=== PATIENT | female | born 1945 | race Caucasian/White ===

== ENCOUNTER → 2018-10-06 | Outpatient (CLI) | payer OTHER | LOC: CIMAGING 17:36 | PROVIDERS: ATTEND Family Medicine | DX: E11.621 Type 2 diabetes mellitus with foot ulcer (principal); Z79.4 Long term (current) use of insulin | CPT/HCPCS: 73620-PO ==

== ENCOUNTER 2018-12-29 05:49 | Inpatient (IN) | payer OTHER ==
[2018-12-29] MEDS ORDERED: ceFAZolin 2 GM/DEXTROSE 100 ML IV ONE (06:07)
[2018-12-29] MEDS ORDERED: LR 1,000 ML IV ONE (06:07)
--- NOTE | 2018-12-29 06:35 | PDHPUP ---
History & Physical Update H&P update statement: This history and physical update is based on an assessment of the patient which was completed after admission or registration (within 24 hours), but prior to the surgery/procedure. H&P update: H&P reviewed & patient examined, no change in patient's condition since H&P completed
[2018-12-29 06:45] LABS: PLATELET COUNT 229 10^3/uL (150-400)
--- NOTE | 2018-12-29 06:56 | PDANEPAE ---
ANE Past Medical History - Cardiovascular History Hx Hypertension: No Hx Arrhythmias: No Hx Chest Pain: No Hx Coronary Artery / Peripheral Vascular Disease: No Hx CHF / Valvular Disease: No Hx Palpitations: No Cardiovascular History Comment: peripheral neuropathy - Pulmonary History Hx COPD: Yes Hx Asthma/Reactive Airway Disease: No Hx Recent Upper Respiratory Infection: No Hx Oxygen in Use at Home: Yes O2 in Use at Home (L/minute): 2.L 24/7 Hx Sleep Apnea: No Sleep Apnea Screening Result - Last Documented: Positive - Neurologic History Hx Cerebrovascular Accident: No Hx Seizures: No Hx Dementia: No - Endocrine History Hx Diabetes: Yes Endocrine History Comment: type 2 - Renal History Hx Renal Disorders: No - Liver History Hx Hepatic Disorders: No - Neurological & Psychiatric Hx Hx Neurological and Psychiatric Disorders: Yes Neurological / Psychiatric History Comment: peripheral neuropathy. anxiety, depression - Cancer History Hx Cancer: No - Congenital Disorder History Hx Congenital Disorders: No - GI History Hx Gastrointestinal Disorders: Yes Gastrointestinal History Comment: COLITIS - Other Health History Other Health History: BILAT CATARACT SX. 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 UPPER AND LOWER DENTURE. ANEMIA - Chronic Pain History Chronic Pain: Yes (LEFT SHOULDER AND ARM) - Surgical History Prior Surgeries: none in last 5 years. colonoscopy 2009. back,surgery. choleycystectomy 1982 ANE Review of Systems Review of Systems: - Exercise capacity METS (RN): 3 METS ANE Patient History - Allergies Allergies/Adverse Reactions: Penicillins Allergy (Mild, Verified 12/26/18 14:13) Other-Enter Comments - Home Medications Home Medications: DULoxetine [Cymbalta 60 MG (*)] 60 mg PO BID 07/29/09 [Last Taken 12/28/18] Imipramine HCl [Imipramine HCl 25 mg (*)] 125 mg PO HS 07/29/09 [Last Taken ] Lisinopril [Zestril 5 mg (*)] 5 mg PO DAILY PRN 07/29/09 [Last Taken 12/10/18] Lovastatin [Altoprev] 20 mg PO HS 07/29/09 [Last Taken 12/28/18] metFORMIN HCL [Glucophage 500 mg (*)] 500 mg PO DAILY 07/29/09 [Last Taken 12/28] oxyCODONE CR [OxyCONTIN] 20 mg PO BID 07/29/09 [Last Taken 12/28/18] Aspirin [Aspirin 81mg (*)] 81 mg PO DAILY 12/26/18 [Last Taken 12/28/18] Cetirizine [ZyrTEC 10 mg (*)] 10 mg PO BID 12/26/18 [Last Taken 12/28/18] Dicyclomine [Bentyl 10 MG (*)] 10 mg PO DAILY@18 12/26/18 [Last Taken 12/26/18] Gabapentin [Neurontin 300 MG (*)] 300 mg PO TID 12/26/18 [Last Taken 12/28/18] Herbals/Supplements -Info Only 1 ea PO DAILY 12/26/18 [Last Taken 12/26/18] Insulin 70/30 Human [HumuLIN 70/30] 50 unit SC BID 12/26/18 [Last Taken 12/27/18 ] Montelukast Sodium [Singulair 10 mg (*)] 10 mg PO HS 12/26/18 [Last Taken ] Multivitamins [Multivitamin (*)] 1 each PO DAILY 12/26/18 [Last Taken 12/26/18] Oxybutynin Chloride [Ditropan 5mg (RX)] 5 mg PO DAILY 12/26/18 [Last Taken 12/28] Promethazine HCl [Phenergan 25mg (*)] 25 mg PO Q4 PRN 12/26/18 [Last Taken 12/28] Sennosides/Docusate Sodium [Colace 2-in-1 Tablet] 1 each PO BID 12/26/18 [Last Taken 12/28/18] Zaleplon [ZALEPLON] 10 mg PO HS 12/26/18 [Last Taken 12/28/18] clonazePAM [klonoPIN (*)] 1 mg PO HS 12/26/18 [Last Taken 12/28/18] diphenhydrAMINE [Benadryl 25 MG (*)] 25 mg PO HS 12/26/18 [Last Taken 12/26/18] metFORMIN HCL [Glucophage 500 mg (*)] 500 mg PO DAILY@18 12/26/18 [Last Taken ] oxyCODONE IR [Oxycodone Ir (*)] 10 mg PO Q4HRS 12/26/18 [Last Taken Unknown] - NPO status NPO Since - Liquids (Date): 12/29/18 NPO Since - Liquids (Time): 05:00 NPO Since - Solids (Date): 12/28/18 NPO Since - Solids (Time): 22:30 - Smoking Hx Smoking Status: Former smoker - Family Anes Hx Family Hx Anesthesia Complications: none ANE Labs/Vital Signs - Labs Result Diagrams: 12/29/18 06:30 12/29/18 06:30 - Vital Signs Height: 167.64 cm Weight: 73.482 kg ANE Physical Exam - Airway Neck exam: FROM Mallampati Score: Class 2 Mouth exam: poor dentition - Pulmonary Pulmonary: no respiratory distress - Cardiovascular Cardiovascular: regular rate and rhythym - ASA Status ASA Status: III ANE Anesthesia Plan Anesthesia Plan: general endotracheal anesthesia
[2018-12-29] MEDS ORDERED: fentaNYL 100 MCG/2 ML INJ ONE (07:03)
[2018-12-29] MEDS ORDERED: ROCURONIUM 50 MG/5 ML VIAL ONE (07:04)
[2018-12-29] MEDS ORDERED: METOCLOPRAMIDE 10 MG/2 ML VIAL ONE (07:04)
[2018-12-29] MEDS ORDERED: LIDOCAINE 2% 100 MG/5 ML SYR ONE (07:04)
[2018-12-29] MEDS ORDERED: RANITIDINE 50 MG/2 ML VIAL ONE (07:04)
[2018-12-29] MEDS ORDERED: PROPOFOL 200 MG/20 ML VIAL ONE (07:04)
[2018-12-29] MEDS ORDERED: BUPIVACAINE 0.5% 30 ML SDV ONE (07:36)
[2018-12-29] MEDS ORDERED: NEOSTIGMINE METHYLSULFATE 10 MG/10 ML MDV ONE (07:50)
[2018-12-29] MEDS ORDERED: GLYCOPYRROLATE 0.2 MG/1 ML VIAL ONE ×2 (07:50)
[2018-12-29] MEDS ORDERED: ALBUTEROL 3 ML DEYVIAL IH PRN (07:54)
[2018-12-29] MEDS ORDERED: fentaNYL 100 MCG/2 ML INJ IVP PRN (07:54)
[2018-12-29] MEDS ORDERED: ONDANSETRON 4 MG/2 ML VIAL IVP PRN ×2 (07:54→08:04)
[2018-12-29] MEDS ORDERED: NALOXONE HCL 0.4 MG/ML INJ IVP PRN ×2 (07:54)
[2018-12-29] MEDS ORDERED: ACETAMINOPHEN 325 MG TAB PO PRN (08:04)
--- NOTE | 2018-12-29 08:08 | POSTOPPROG ---
Post Op Note Date of Operation: 12/29/18 Surgeon: Wilber Bhatt Anesthesiologist: Gracie Anesthesia: GET(General Endotracheal) Pre-op Diagnosis: Necrotic R heel wound Post-op Diagnosis: same Procedure: excisional debridement R foot c VAC placement Findings: necrotic tissue, no bone exposed Inf/Abcess present in the surg proc area at time of surgery?: Yes Depth: Superfical (Skin SQ) EBL: Minimal Drains: Wound Vac
--- NOTE | 2018-12-29 08:08 | POSTANESTH ---
Post Anesthetic Evaluation Cardiovascular Status: Similar to Pre-Op Cond Respiratory Status: Similar to Pre-op Cond. Level of Consciousness/Mental Status: Can Participate in Eval, Mildly Sleepy, Arousable Pain Control: Adequate, Prn Tx Ordered Nausea/Vomiting Control: Adequate, Prn Tx Ordered Complications Possibly Related to Anesthesia: None Noted
[2018-12-29] MEDS ORDERED: PROMETHAZINE HCL 25 MG TAB PO PRN (08:11)
[2018-12-29] MEDS ORDERED: D50W 25 GM/50 ML SYR IVP PRN (08:11)
[2018-12-29] MEDS ORDERED: Herbals/Supplements -Info Only PO SCH (09:00)
[2018-12-29] MEDS ORDERED: OXYBUTYNIN CHLORIDE 5 MG TAB PO SCH (09:00)
[2018-12-29] MEDS: GABAPENTIN 300 MG CAP PO SCH ×3 (09:45→21:31)
[2018-12-29] MEDS: DULoxetine 60 MG CAP PO SCH ×2 (09:45→20:23)
[2018-12-29] MEDS: SENNOSIDES/DOCUSATE SODIUM TAB PO SCH ×2 (09:47→20:27)
[2018-12-29] MEDS: TEMAZEPAM 15 MG CAP PO SCH ×2 (10:20→20:29)
[2018-12-29] MEDS: CETIRIZINE 10 MG TAB PO SCH ×2 (10:27→20:28)
[2018-12-29] MEDS: MULTIVITAMINS 1 EACH TAB PO SCH (10:27)
[2018-12-29] MEDS: INSULIN LISPRO 100 UNIT/ML SC SCH ×2 (10:27→16:57)
[2018-12-29] MEDS: ENOXAPARIN 40 MG/0.4 ML SYR SC SCH (10:28)
[2018-12-29] MEDS: INSULIN 70/30 HUMAN 100 UNIT/ML SYR SC SCH ×2 (10:28→17:02)
--- NOTE | 2018-12-29 11:53 | GOP ---
[f rep st] OPERATIVE REPORT DATE OF OPERATION: 12/29/2018 SURGEON: Wilber Bhatt MD FLEECE TIER: None. ANESTHESIA: General endotracheal. ANESTHESIOLOGIST: Dr. Manjit Bowman. PREOPERATIVE DIAGNOSIS: Necrotic right heel wound. POSTOPERATIVE DIAGNOSIS: Necrotic right heel wound. PROCEDURE PERFORMED: Excisional debridement of right foot with wound VAC placement. FINDINGS: Necrotic tissue. No bone exposed. SPECIMENS: None. ESTIMATED BLOOD LOSS: 20 mL. DESCRIPTION OF PROCEDURE: The patient was greeted in the preoperative suite. Once again, risks, serjio efits and alternatives were discussed. Consent was signed. She was brought back to the operative mccray ite, placed on the OR table in supine position. After all anesthesia machines including SCDs were on and functioning, a World Health Organization time-out was performed. After successful induction of general anesthesia, the patient's right lower extremity was prepped and draped in typical sterile fas hion. I commenced the procedure by infiltrating the surrounding tissue with local anesthesia without epinephrine. I then sharply debrided the soft tissue all the way down to good bleeding healthy tiss ue. Hemostasis was achieved with a combination of gentle pressure and electrocautery. After hemosta sis was achieved. I then placed a wound VAC with a black sponge into the cavity. I tracked this to the anterior foot. It was attached to suction at 125 mmHg, which was well tolerated by the patient. She was then extubated in the operative suite and taken to the PACU in satisfactory condition. DRAINS: Wound VAC COUNTS: All counts were reported as correct x2. /[id number]/MODL
[2018-12-29] MEDS: OXYBUTYNIN CHLORIDE 5 MG TAB PO SCH (12:04)
--- NOTE | 2018-12-29 12:18 | GCON ---
[f rep st] CONSULTATION DATE OF CONSULTATION: 12/29/2018 REFERRING PHYSICIAN: Wilber Bhatt MD REASON FOR CONSULTATION: Medical management. HPI: A 73-year-old female with uncontrolled diabetes (A1c 11.8), hypertension, depression with chronic right heel wound. She has had a wound since the beginning of this year, per . She was evaluated by surgery in November and was debrided at that time. Since debridement, she has had 100% recurrence of all the slough that was there. She is having some dull aching pain. No fevers , chills, or sweats. Cultures then grew MRSA and Enterococcus. Today, she underwent elective debridement by Dr. Bhatt and is comfortable after procedure. Labs drawn this morning showed a glucose of greater than 500. She says sugars at home run 200-500. Her diet is not well controlled. She has been depressed and in bed most days. REVIEW OF SYSTEMS: I completed a 10-point review of systems, negative except in HPI. PAST MEDICAL HISTORY: Hypertension, diabetes, depression. PAST SURGERIES: L5 laminectomy and cholecystectomy. SOCIAL HISTORY: Lives in [place] with her of 35 years. No alcohol, tobacco, or illicit's. FAMILY HISTORY: Stomach cancer. ALLERGIES: Penicillin, rash. HOME MEDICATIONS: Oxycodone 10 mg q.4 hours, OxyContin 20 mg twice daily, metformin 500 in the morning, 500 in the evening, Benadryl as needed. Clonazepam, Zaleplon 10 mg at bedtime, senna, Phenergan, oxybutynin 5 mg daily, multivitamin, Singulair 10 mg, lovastatin 20 mg at bedtime, Zestril 5 daily p.r.n., Humulin 70/30, 50 units twice daily, imipramine 125 at night, herbal supplement, gabapentin 300 three times daily, Bentyl, fluoxetine 60 mg twice daily, Zyrtec, aspirin. PHYSICAL EXAMINATION: VITAL SIGNS: Temperature 37, blood pressure 151/97, heart rate in the 80s, respirations 18, 93% on 3 L. GENERAL: She is overweight , sitting up eating breakfast. No acute distress. HEENT: PERRLA. Moist mucous membranes. CV: Regular rate and rhythm. LUNGS: Clear. ABDOMEN: Soft , nontender. : No Suarez. Right foot is dressed, clean, dry and intact. PSYCH: Alert and oriented. Flat affect. LAB: WBC is 9, hemoglobin 13, hematocrit 41, platelets 229. Sodium 135, potassium 4.9, chloride 92, creatinine 1, glucose is 573, repeat is 412. calcium 9.3. A1c April 2018 was 11.8. ASSESSMENT/PLAN: 1. Right heel ulcer: Debrided by Dr. Bhatt today. Management per him. 2. Uncontrolled diabetes. We will repeat A1c. Added sliding scale insulin. Will adjust long-acting based on needs. Continue metformin. Counseled on diet. 3. Depression. Resume home medications. Also recommend outpatient therapy. 4. Hypertension. Using medications p.r.n. at home. She is hypertensive here. We will monitor. Says has some lows at home. We will add back medication as needed. 5. Diet, diabetic. 6. DVT prophylaxis. Sequential compression devices. Thank you for this consult. We will follow along. Please call if any questions. /[id number]/MODL MTDD
[2018-12-29] MEDS: IBUPROFEN 600 MG TAB PO SCH ×2 (13:01→21:30)
[2018-12-29] MEDS: HYDROCODONE/APAP 5/325 TAB PO PRN ×3 (13:09→23:15)
--- NOTE | 2018-12-29 14:35 | PDMN ---
Medical Necessity Medical necessity: [facility] [place] [place] S494 Foot Surgical Wound Care, A-2 days: 73 yo s/p R heel excisional debridement w/ wound vac placement for necrotic right heel wound in setting of known uncontrolled DM (A1c 11.8). Recent hx of debridement to same area w/ MRSA+ and +Enterococcus tissue. Glucose 573 on admit. Meets [facility] [place] [place] IP criteria for necrosis to tissue and unstable comorbidity (DM). Anticipate >2MN for ongoing management and tx of the above.
[2018-12-29] MEDS: HYDROmorphONE/DILAUDID 1 MG/ML INJ IVP PRN (15:17)
[2018-12-29] MEDS: DICYCLOMINE 10 MG CAP PO SCH (17:07)
[2018-12-29] MEDS: PRAVASTATIN SODIUM 20 MG TAB PO SCH (20:28)
[2018-12-29] MEDS: clonazePAM 1 MG TAB PO SCH (20:29)
[2018-12-29] MEDS: MONTELUKAST SODIUM 10 MG TAB PO SCH (20:30)
[2018-12-29] MEDS: ALIGN PO SCH (20:37)
[2018-12-29] MEDS: IMIPRAMINE HCL 25 MG TAB PO SCH (20:44)
[2018-12-29] MEDS ORDERED: IMIPRAMINE HCL 25 MG TAB PO SCH (21:00)
[2018-12-29] MEDS ORDERED: IMIPRAMINE HCL 50 MG TAB PO SCH (21:00)
[2018-12-30] MEDS: HYDROCODONE/APAP 5/325 TAB PO PRN (00:04)
[2018-12-30] MEDS: IBUPROFEN 600 MG TAB PO SCH ×3 (05:03→21:44)
[2018-12-30] MEDS: INSULIN LISPRO 100 UNIT/ML SC SCH ×3 (07:43→16:37)
[2018-12-30] MEDS: INSULIN 70/30 HUMAN 100 UNIT/ML SYR SC SCH ×2 (07:44→17:13)
[2018-12-30] MEDS: GABAPENTIN 300 MG CAP PO SCH ×3 (09:12→21:43)
[2018-12-30] MEDS: DULoxetine 60 MG CAP PO SCH ×2 (09:12→21:43)
[2018-12-30] MEDS: MULTIVITAMINS 1 EACH TAB PO SCH (09:12)
[2018-12-30] MEDS: CETIRIZINE 10 MG TAB PO SCH ×2 (09:12→21:44)
[2018-12-30] MEDS: SENNOSIDES/DOCUSATE SODIUM TAB PO SCH ×2 (09:12→21:44)
[2018-12-30] MEDS: ENOXAPARIN 40 MG/0.4 ML SYR SC SCH (09:13)
--- NOTE | 2018-12-30 11:05 | SOAPPROG ---
SOAP Progress Note Assessment/Plan: Assessment: 73yo F s/p R medial heel debridement c VAC - VSS, HDs - glucose levels much better controlled - pain controlled - PT/OT - VAC change tomorrow, currently holding suction without issues Plan: 12/30/18 11:04 Subjective: feels well, no complaints Objective: Vital Signs Temp Pulse Resp BP Pulse Ox 36.6 C 84 18 133/86 H 94 12/30/18 07:22 12/30/18 07:22 12/30/18 07:22 12/30/18 07:22 12/30/18 07:22 Laboratory Results 12/29/18 06:30 12/29/18 06:30 12/29/18 12/30/18 12/31/18 05:59 05:59 05:59 Intake Total 1530 Output Total 10 Balance 1520 ICD10 Worksheet Patient Problems: Problems Problem Status Onset Hypoxia Acute Nonhealing wound of heel Acute Poorly controlled diabetes mellitus Acute - ICD10 Problem Qualifiers (1) Nonhealing wound of heel (2) Poorly controlled diabetes mellitus (3) Hypoxia
--- NOTE | 2018-12-30 11:56 | HOSPPROG ---
Hospitalist Progress Note Assessment/Plan: Elda is a 73 y.o. female w uncontrolled glucoses, htn who was admitted for treatment for her chronic right heel wound. First encounter, chart reviewed. *chronic r heel ulcer -s/p debridement and wound vac *uncontrolled DM -metformin + SS + 70/30 insulin bid -A1c is 14.3 average glucose of 364 -she says she eats 'junk' at home and often eats 4 yogurts a day -will ask dietary to see her. *Depression -home meds resumed *htn -bp stable *HLD -statin *dvt prophylaxis: LMWH *plan: dietary to see, reviewed w her the importance of better glucose control w healing. She was motivated to talk w corporate receptionist. Subjective: Elda has no c/o pain. Objective: Vital Signs Temp Pulse Resp BP Pulse Ox 36.7 C 81 16 123/77 H 95 12/30/18 11:27 12/30/18 11:27 12/30/18 11:27 12/30/18 11:27 12/30/18 11:27 Laboratory Results 12/29/18 06:30 12/29/18 06:30 12/29/18 12/30/18 12/31/18 05:59 05:59 05:59 Intake Total 1530 Output Total 10 Balance 1520 - Physical Exam Constitutional: no apparent distress Eyes: PERRL Ears, Nose, Mouth, Throat: hearing normal Cardiovascular: regular rate and rhythym Respiratory: no respiratory distress Gastrointestinal: normoactive bowel sounds Skin: warm, other (right lower ext w dressing in place, wound vac, toes warm) Neurologic: AAOx3 Psychiatric: interacting appropriately ICD10 Worksheet Patient Problems: Problems Problem Status Onset Hypoxia Acute Nonhealing wound of heel Acute Poorly controlled diabetes mellitus Acute
[2018-12-30] MEDS: OXYBUTYNIN CHLORIDE 5 MG TAB PO SCH (12:22)
--- NOTE | 2018-12-30 14:00 | ASMTCMCOM ---
CM Note CM Note Notes: Pt admitted for I&D of heel wound in the setting of poorly controlled diabetes. Pt now has a wound vac. CM met with pt in the room. Pt lives with independently. PT is recommending SNF, and pt is agreeable. Pt lives in [place] and requested referral sent to [facility] and they have accepted. Discharge not likely before . CM to follow. D/C Plan: [facility] Date Signed: 12/30/2018 01:59 PM Electronically Signed By:Vielka Cohen
[2018-12-30] MEDS ORDERED: CALCIUM CARBONATE 500 MG CHEWABLE TAB PO PRN (15:21)
[2018-12-30] MEDS ORDERED: MAG HYDROX/AL HYDROX/SIMETH 30 ML UDCUP PO PRN (15:21)
[2018-12-30] MEDS: DICYCLOMINE 10 MG CAP PO SCH (17:13)
[2018-12-30] MEDS: TEMAZEPAM 15 MG CAP PO SCH (21:43)
[2018-12-30] MEDS: PRAVASTATIN SODIUM 20 MG TAB PO SCH (21:43)
[2018-12-30] MEDS: clonazePAM 1 MG TAB PO SCH (21:44)
[2018-12-30] MEDS: MONTELUKAST SODIUM 10 MG TAB PO SCH (21:44)
[2018-12-30] MEDS: IMIPRAMINE HCL 25 MG TAB PO SCH (21:45)
[2018-12-30] MEDS: ALIGN PO SCH (21:45)
[2018-12-31] MEDS: IBUPROFEN 600 MG TAB PO SCH ×3 (05:07→21:48)
--- NOTE | 2018-12-31 08:30 | SOAPPROG ---
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 12/31/18 08:29 Objective: Vital Signs Temp Pulse Resp BP Pulse Ox 36.7 C 97 18 166/94 H 96 12/31/18 04:00 12/31/18 04:00 12/31/18 04:00 12/31/18 04:00 12/31/18 04:00 Laboratory Results 12/29/18 06:30 12/29/18 06:30 12/30/18 12/31/18 01/01/19 05:59 05:59 05:59 Intake Total 1530 1030 Output Total 10 Balance 1520 1030 ICD10 Worksheet Patient Problems: Problems Problem Status Onset Hypoxia Acute Nonhealing wound of heel Acute Poorly controlled diabetes mellitus Acute
[2018-12-31] MEDS: ENOXAPARIN 40 MG/0.4 ML SYR SC SCH (09:00)
[2018-12-31] MEDS: HYDROmorphONE/DILAUDID 1 MG/ML INJ IVP PRN (09:00)
[2018-12-31] MEDS: DULoxetine 60 MG CAP PO SCH ×2 (09:01→21:48)
[2018-12-31] MEDS: GABAPENTIN 300 MG CAP PO SCH ×3 (09:01→21:48)
[2018-12-31] MEDS: CETIRIZINE 10 MG TAB PO SCH ×2 (09:02→21:47)
[2018-12-31] MEDS: MULTIVITAMINS 1 EACH TAB PO SCH (09:02)
[2018-12-31] MEDS: SENNOSIDES/DOCUSATE SODIUM TAB PO SCH ×2 (09:02→21:47)
--- NOTE | 2018-12-31 09:59 | HOSPPROG ---
Hospitalist Progress Note Assessment/Plan: *chronic r heel ulcer -s/p debridement and wound vac #Uncontrolled DM: borderline lows today. Hold morning Humulin and reduce evening dose -A1c 14% -admits that her diet may not be controlled at home. Counseled her good control needed for wound healing *Depression -home meds resumed *htn -bp stable *HLD -statin Subjective: no pain in heel Objective: Vital Signs Temp Pulse Resp BP Pulse Ox 36.6 C 74 18 131/86 H 97 12/31/18 08:00 12/31/18 08:00 12/31/18 08:00 12/31/18 08:00 12/31/18 08:00 Laboratory Results 12/29/18 06:30 12/29/18 06:30 12/30/18 12/31/18 01/01/19 05:59 05:59 05:59 Intake Total 1530 1030 Output Total 10 Balance 1520 1030 - Physical Exam Constitutional: obese Eyes: PERRL Ears, Nose, Mouth, Throat: moist mucous membranes Cardiovascular: regular rate and rhythym Respiratory: no respiratory distress Gastrointestinal: normoactive bowel sounds Skin: warm, other Musculoskeletal: other (right heel ulcer with some granualtion tissue, no surrounding redness) Neurologic: AAOx3, CN II-XII Intact Psychiatric: interacting appropriately ICD10 Worksheet Patient Problems: Problems Problem Status Onset Hypoxia Acute Nonhealing wound of heel Acute Poorly controlled diabetes mellitus Acute
[2018-12-31] MEDS: INSULIN LISPRO 100 UNIT/ML SC SCH ×3 (12:16→17:13)
[2018-12-31] MEDS: INSULIN 70/30 HUMAN 100 UNIT/ML SYR SC SCH ×2 (12:18→17:13)
--- NOTE | 2018-12-31 13:02 | WOCRNPDOC ---
WOCRN Advanced Assessment Note - Skin Integrity Problem, Advanced Assess Right Heel Dressing Type: Wound Vac Dressing Description: Intact Integumentary Issue Intervention: Dressing Changed Xochitl Wound Tissue: Erythema (up to 4 cm circumferentially), Macerated, Dry Xochitl Wound Swelling: Mild Wound Bed Color: Black, Brown, [place], Red, Yellow Wound Bed Constitution: Granulation Tissue (20%), Smooth Tissue (10%), Subcutaneous Fat (20%), Mixed Loose & Adhered Slough/Eschar (50%) Wound Edges: Attached, Well Defined Site Odor: None Site Measurement - Head-to-Toe Length X Width X Depth (cm): 2.7x3.6x0.6 Skin Integrity Problem Comment: Vac dressing removed. Wound cleaned with ns and gauze. Trac landing site noted to be dime sized pink, blanchable, intact skin; will place trac landing pad lower on foot to avoid this spot. Xochitl wound skin prepped and draped. One piece of small black Simplace foam placed with bridge to trac landing pad just anterior to wound on a flatter part of foot/ankle. Suction to -125 mm Hg with no leaks noted. Rivera Martinez and Felicia Martinez notified of findings. Dr Sotomayor visualized wound. Will follow up saturday for wound vac dressing change.
[2018-12-31] MEDS: OXYBUTYNIN CHLORIDE 5 MG TAB PO SCH (13:24)
[2018-12-31] MEDS: DICYCLOMINE 10 MG CAP PO SCH (18:37)
[2018-12-31] MEDS: IMIPRAMINE HCL 25 MG TAB PO SCH (21:45)
[2018-12-31] MEDS: ALIGN PO SCH (21:46)
[2018-12-31] MEDS: MONTELUKAST SODIUM 10 MG TAB PO SCH (21:47)
[2018-12-31] MEDS: PRAVASTATIN SODIUM 20 MG TAB PO SCH (21:47)
[2018-12-31] MEDS: clonazePAM 1 MG TAB PO SCH (21:47)
[2018-12-31] MEDS: TEMAZEPAM 15 MG CAP PO SCH (21:47)
[2019-01-01] MEDS: IBUPROFEN 600 MG TAB PO SCH ×3 (06:09→21:17)
[2019-01-01] MEDS: INSULIN LISPRO 100 UNIT/ML SC SCH ×4 (07:56→22:38)
[2019-01-01] MEDS: INSULIN 70/30 HUMAN 100 UNIT/ML SYR SC SCH (08:36)
[2019-01-01] MEDS: GABAPENTIN 300 MG CAP PO SCH ×3 (08:37→21:17)
[2019-01-01] MEDS: ENOXAPARIN 40 MG/0.4 ML SYR SC SCH (08:37)
[2019-01-01] MEDS: MULTIVITAMINS 1 EACH TAB PO SCH (08:37)
[2019-01-01] MEDS: CETIRIZINE 10 MG TAB PO SCH ×2 (08:37→21:18)
[2019-01-01] MEDS: DULoxetine 60 MG CAP PO SCH ×2 (08:37→21:17)
[2019-01-01] MEDS: SENNOSIDES/DOCUSATE SODIUM TAB PO SCH ×2 (08:37→21:18)
[2019-01-01] MEDS ORDERED: INSULIN 70/30 HUMAN 100 UNIT/ML SYR SC SCH ×2 (08:56→12:05)
[2019-01-01] MEDS: OXYBUTYNIN CHLORIDE 5 MG TAB PO SCH (12:43)
--- NOTE | 2019-01-01 15:53 | ASMTCMCOM ---
ROSEANNA Note CM Note Notes: CM met with pt in her room and spoke to Dr. Bhatt. Pt accepted at [facility] and was hoping to go today; however, per Kylah at [facility], they will not have a wound vac until later tonight. Per Dr. Bhatt, not okay for her to go with just wet gauze dressing for that long. Discharge will be tomorrow. ROSEANNA D/C plan: [facility] Date Signed: 01/01/2019 03:53 PM Electronically Signed By:Kylah Beverly
--- NOTE | 2019-01-01 16:17 | SOAPPROG ---
SOAP Progress Note Assessment/Plan: Assessment: 73yo F s/p R medial heel debridement c VAC - VSS, HDs - appreciate IM assistance with medical comorbidities - VAC change yesterday was uneventful, saw pics. There is decent healing tissue , some slough - plan for Tx to [facility] tomorrow, they wont have VAC until that time. Plan: 12/30/18 11:04 01/01/19 16:16 Subjective: some pain last evening, no complaints Objective: Vital Signs Temp Pulse Resp BP Pulse Ox 36.8 C 81 16 100/60 92 01/01/19 14:54 01/01/19 14:54 01/01/19 14:54 01/01/19 14:54 01/01/19 14:54 Laboratory Results 12/29/18 06:30 12/29/18 06:30 12/31/18 01/01/19 01/02/19 05:59 05:59 05:59 Intake Total 1030 400 500 Balance 1030 400 500 ICD10 Worksheet Patient Problems: Problems Problem Status Onset Hypoxia Acute Nonhealing wound of heel Acute Poorly controlled diabetes mellitus Acute - ICD10 Problem Qualifiers (1) Nonhealing wound of heel (2) Poorly controlled diabetes mellitus (3) Hypoxia
[2019-01-01] MEDS: DICYCLOMINE 10 MG CAP PO SCH (18:36)
[2019-01-01] MEDS: TEMAZEPAM 15 MG CAP PO SCH (21:17)
[2019-01-01] MEDS: clonazePAM 1 MG TAB PO SCH (21:17)
[2019-01-01] MEDS: MONTELUKAST SODIUM 10 MG TAB PO SCH (21:17)
[2019-01-01] MEDS: PRAVASTATIN SODIUM 20 MG TAB PO SCH (21:18)
[2019-01-01] MEDS: ALIGN PO SCH (21:18)
[2019-01-01] MEDS: IMIPRAMINE HCL 25 MG TAB PO SCH (21:18)
[2019-01-02] MEDS: IBUPROFEN 600 MG TAB PO SCH (08:04)
[2019-01-02] MEDS ORDERED: INSULIN 70/30 HUMAN 100 UNIT/ML SYR SC SCH (09:00)
--- NOTE | 2019-01-02 09:32 | HOSPPROG ---
Hospitalist Progress Note Assessment/Plan: DIAGNOSES: * Chronic right heel ulcer status post debridement, wound VAC please * Diabetes mellitus with labile sugars * Chronic depression stable on home medicines * Chronic hypertension stable on medicine * Hyperlipidemia PLANS: * Will change short-acting insulin from a sliding scale, which is likely contributing to the lability of sugars, to schedule pre meal dose * Continue close monitoring and adjust treatment as needed * Follow blood pressures * Wound care per surgery SUBJECTIVE: No specific complaints other than chronic ache in her foot, the initial sharp pain from infection to sore surgery is better OBJECTIVE Vitals reviewed: All stable without fever Metal Baler, my review: Exam: alert oriented relaxed skin warm dry color ok resps not labored lungs clear BSs heart regular limbs warm, no edema iv site ok Lab data: Sugars ranging 107-216 past 24 hr Objective: Vital Signs Temp Pulse Resp BP Pulse Ox 36.6 C 72 14 124/79 H 95 01/02/19 07:27 01/02/19 07:27 01/02/19 07:27 01/02/19 07:27 01/02/19 07:27 Laboratory Results 12/29/18 06:30 12/29/18 06:30 01/01/19 01/02/19 01/03/19 06:59 06:59 06:59 Intake Total 550 350 Balance 550 350 ICD10 Worksheet Patient Problems: Problems Problem Status Onset Hypoxia Acute Nonhealing wound of heel Acute Poorly controlled diabetes mellitus Acute
[2019-01-02] MEDS: ENOXAPARIN 40 MG/0.4 ML SYR SC SCH (09:55)
[2019-01-02] MEDS: GABAPENTIN 300 MG CAP PO SCH (09:57)
[2019-01-02] MEDS: DULoxetine 60 MG CAP PO SCH (09:57)
[2019-01-02] MEDS: MULTIVITAMINS 1 EACH TAB PO SCH (09:57)
[2019-01-02] MEDS: CETIRIZINE 10 MG TAB PO SCH (09:57)
[2019-01-02] MEDS: SENNOSIDES/DOCUSATE SODIUM TAB PO SCH (09:57)
[2019-01-02] MEDS: INSULIN LISPRO 100 UNIT/ML SC SCH ×2 (10:08→13:02)
--- NOTE | 2019-01-02 10:58 | ASMTLACE ---
DUNIA Length of stay for Answers: 4-6 days current admission Acuity / Level of Answers: Yes Care: Did the patient have an inpatient admission? Comorbidities - select Answers: Chronic pulmonary disease all that apply Diabetes (uncontrolled or controlled) Opioid dependence / Chronic pain # of Emergency department Answers: 0 visits in the last 6 months Social determinants Answers: Mental health diagnosis (anxiety, depression, pers onality disorders, etc.) Score: 17 Date Signed: 01/02/2019 10:58 AM Electronically Signed By:Shonda Roberto RN
--- NOTE | 2019-01-02 11:01 | PDIAF ---
- Diagnosis Diagnosis: right foot wound, poorly controlled diabetes Code Status: Do Not Resuscitate - Medication Management Discharge Medications: electronically signed and located in the Home Medication List. - Orders Services needed: Registered Nurse, Physical Therapy, Occupational Therapy Isolation Type: Contact Isolation Diet Recommendation: ADA 2000 consistent carb Diet Texture: Regular Texture Diet Additional Instructions: Wound care orders: Small piece Simplace or other black wound vac foam. Suction to -125 mm Hg, change M/W/F. Reece Unger RN WC Team - Patient is weight bearing as tolerated to the Right lower extremity. - do not get the right foot wet OXYGEN: 1 liter at all times Insulin: Normally takes 70/30 50 units BID. Has had borderline lows here on diabetic diet. Diet is greatly contributing. Decreased dose to 25 units BID. Will likely need more with diet liberalization. - Follow Up Care Current Providers and Referrals: Ben Medrano MD [Primary Care Provider] - [facility] [Clinic] - (return to be seen by the surgeon in 1 week )
--- NOTE | 2019-01-02 11:25 | WOCRNPDOC ---
WOCRN Advanced Assessment Note - Skin Integrity Problem, Advanced Assess Right Heel Dressing Type: Black Vac Foam, Wound Vac Dressing Description: Clean/Dry, Intact Closure Description: Not Approximated Exudate Amount: Minimal Exudate Color: Reddish/Yellow Exudate Characteristic(s): Serosanguinous Integumentary Issue Intervention: Dressing Applied (moist to dry dressing applied), Dressing Removed (wound vac removed) Xochitl Wound Tissue: Macerated, Intact Wound Bed Color: Black (cautery), [place], Yellow, [place] Wound Bed Constitution: Granulation Tissue, Smooth Tissue, Subcutaneous Fat Wound Edges: Attached, Well Defined Skin Integrity Problem Comment: Wound vac removed with Dr. Bhatt. Wound bed cleaned with NS and gauze. Patient to DC today to SNF. SNF requires that they place their own vac, so moist to dry placed here. Will place for follow-up on Friday 01/05 just in case patient does not DC.
[2019-01-02] MEDS: OXYBUTYNIN CHLORIDE 5 MG TAB PO SCH (11:55)
[2019-01-02 12:02] VITALS: BP 139/90
--- NOTE | 2019-01-02 12:04 | ASMTDCNOTE ---
Case Management Discharge Discharge Order Complete? Answers: Yes Patient to Obtain Answers: Other Notes: [facility] Medications Transportation Arranged Answers: Other Notes: [facility] Transport will Pick (Date 01/02/2019 01:00 PM & Time) Faxed Final Orders Answers: Yes Agency/Facility Transfer Answers: Yes Report Printed & Faxed to Receiving Agency Family Notified Answers: Yes Discharge Comments Notes: D/w MD, final orders faxed, Lisseth at [facility] notified, RN to call report. Confirmed that [facility] has [employer] woundvac, per MD pt can go with wet to dry dressing and have wound vac placed upon arrival. CM also wrote script for pain medication to go with pt. Date Signed: 01/02/2019 12:03 PM Electronically Signed By:Shonda Roberto RN
--- NOTE | 2019-01-02 13:04 | PDDCSUM ---
Discharge Summary Discharge Summary: DISCHARGE SUMMARY Date of Admission December 29 Date of Discharge January 02 DISCHARGE DIAGNOSES -nonhealing ulceration/wound of the right lower extremity -poorly controlled diabetes -hypoxemic respiratory failure requiring supplemental oxygen -chronic pain HOSPITAL COURSE The patient was admitted and taken to the operating room on the for uneventful debridement of the right heel wound. A wound VAC was subsequently placed at that time. She subsequently remained inpatient as her admission blood glucose levels were over 500, these were stable in a normal range on day of discharge. She had inpatient consultation from the Internal Medicine group for assistance with her chronic medical conditions. She had consultation from both Physical and Occupational therapy and given her instability will standing the decision was made to refer her to a snf facility. She was subsequently discharged in stable condition on the afternoon of the to [facility] sn[facility] facility DISCHARGE MEDICATIONS No new medications DISPOSITION [facility] FOLLOW UP [facility] for re-evaluation.
--- NOTE | 2019-01-07 14:12 | PQFORM ---
PHYSICIAN QUERY FORM Needs Your Response This query form is being sent to you to assure this patient record is coded properly. Please respond to the question below: VOCATIONAL NURSE QUESTION: Dr Bhatt Patients Diabetes was documented as "Uncontrolled" as well as "Poorly Controlled " through out the chart. Please clarify whether patient's Diabetes is : __ Uncontrolled __ Poorly Controlled __ Other (Please Specify ) __ Unable to Determine Thank You Nel DILLARD [employer] INSTRUCTIONS FOR RESPONSE: Answer question by clicking on the "Edit Document" button. Move cursor to area below the stars. When complete, hit "Save." Click on the "Sign" button, then click "Sign" again. Type in your PIN and hit "Enter." DM was uncontrolled MTDD
--- NOTE | 2019-01-08 15:36 | CPEKG ---
Test Reason : OPEN Blood Pressure : / mmHG Vent. Rate : 091 BPM Atrial Rate : 091 BPM P-R Int : 194 ms QRS Dur : 090 ms QT Int : 386 ms P-R-T Axes : 030 -02 014 degrees QTc Int : 475 ms Sinus rhythm Low voltage, precordial leads Confirmed by Regino Randolph ([id number] on 01/08/2019 3:35:33 PM Referred By: Wilber Bhatt Confirmed By:Regino Randolph
== END 2019-01-02 13:35 | disposition home or self-care (01) | DRG 622 ==
LOC: F3N 05:49 → OBSVTOIN 08:07 → F3E 08:33
PROVIDERS: ADMIT Surgery; ATTEND Surgery
PROC: 0JBQ0ZZ Excision of Right Foot Subcutaneous Tissue and Fascia, Open Approach (ICD-10-PCS; principal; 2018-12-29 07:15)
DX: E11.621 Type 2 diabetes mellitus with foot ulcer (principal); E11.65 Type 2 diabetes mellitus with hyperglycemia; J96.91 Respiratory failure, unspecified with hypoxia; E11.40 Type 2 diabetes mellitus with diabetic neuropathy, unspecified; B95.62 Methicillin resistant Staphylococcus aureus infection as the cause of diseases classified elsewhere; G89.29 Other chronic pain; I10 Essential (primary) hypertension; F32.9 Major depressive disorder, single episode, unspecified; E78.5 Hyperlipidemia, unspecified
CPT/HCPCS: 97116-GP; 97161-GP; 97166-GO; 97530-GP; 97535-GO; J0690; J1170; J1650; J1815; J2001; J2704; J2765; J2780; J3010

== ENCOUNTER → 2019-02-05 | Outpatient (CLI) | payer OTHER | LOC: CIMAGING 12:10 ==